=== PATIENT | male | born 1945 | race Caucasian/White ===

== ENCOUNTER 2017-08-25 13:17 | Emergency (ER) | payer MEDICARE, BC ==
--- NOTE | 2017-08-25 14:19 | CT ---
CT HEAD NONCONTRAST: INDICATIONS: Post traumatic injury. Pain. FINDINGS: There is no evidence of intracranial hemorrhage, mass effect, or midline shift. Minimal chronic micr ovascular ischemic disease is present. The ventricular system is normal in size. Scattered paranasa l sinus mucosal thickening is present with complete opacification of the imaged right maxillary sinus . There is dehiscence of medial wall, right orbit, chronic appearing, with adjacent opacification of the ethmoid air cells. IMPRESSION: No acute intracranial hemorrhage or mass effect. POS: [facility]
--- NOTE | 2017-08-25 14:39 | RAD ---
FOUR VIEWS RIGHT KNEE: Indication: Pain. FINDINGS: There is degenerative change with osteophytosis, and chondrocalcinosis. Mild joint capsular distentio n is present. There are enthesophytes of the patella. Multiple metallic clips are present. IMPRESSION: 1. Evidence of CPPD deposition disease. 2. No acute fracture. 3. Mild joint capsular distention. Correlate clinically. POS: [facility]
--- NOTE | 2017-08-25 14:50 | CT ---
FACIAL BONE CT: Clinical history: Fall with injury, pain. FINDINGS: Chronic appearing dehiscense involves medial wall right orbit. No retrobulbar hematoma or mass effect . There is near complete opacification of right maxillary sinus with intrinsic high density that may relate to sinusitis. Associated periosteal thickening indicates chronic sinusitis. Small fluid level at the posterior left maxillary sinus is present. There is leftward nasal septal deviation with assoc iated nasal septal spur. Each zygomatic arch is intact. Temporomandibular joints maintain appropriate alignment. IMPRESSION: 1. No acute facial fracture identified. 2. Additional details as described above. POS: [facility]
== END 2017-08-25 14:40 | disposition home or self-care (01) ==
LOC: SCSER 13:17
DX: S09.90XA Unspecified injury of head, initial encounter (principal); S80.01XA Contusion of right knee, initial encounter; S05.11XA Contusion of eyeball and orbital tissues, right eye, initial encounter; I10 Essential (primary) hypertension; M06.9 Rheumatoid arthritis, unspecified; W19.XXXA Unspecified fall, initial encounter
CPT/HCPCS: 70450; 70486

== ENCOUNTER 2018-02-13 09:33 | Outpatient (CLI) | payer MEDICARE, BC ==
--- NOTE | 2018-02-13 10:57 | RAD ---
TWO VIEWS OF THE CHEST: COMPARISON: 05/18/16. HISTORY: Dyspnea. FINDINGS: Two views of the chest show a normal-size cardiomediastinal silhouette. The patient is status post C ABG. There is no evidence of consolidation, mass, or pleural effusion. Degenerative changes are see n in the spine. IMPRESSION: No evidence of acute cardiopulmonary disease. POS: [facility]
== END 2018-02-13 09:34 | disposition home or self-care (01) ==
LOC: RAD 09:33
PROVIDERS: ATTEND Internal Medicine Critical Care Medicine
DX: R06.00 Dyspnea, unspecified (principal)
CPT/HCPCS: 71046

== ENCOUNTER 2018-10-28 12:37 | Outpatient (CLI) | payer MEDICARE, BC ==
--- NOTE | 2018-10-28 14:37 | RAD ---
CHEST TWO VIEWS: HISTORY: Dyspnea. COMPARISON: 02/13/2018 FINDINGS: The lungs are hyperinflated. Multiple calcified granulomas of the hilum. No focal air space consolidation, pneumothorax, or effusion. No acute osseous abnormality. IMPRESSION: Chronic findings. No acute intrathoracic abnormality. POS: [facility]
== END 2018-10-28 12:38 | disposition home or self-care (01) ==
LOC: RAD 12:37
PROVIDERS: ATTEND Internal Medicine Critical Care Medicine
DX: R06.00 Dyspnea, unspecified (principal); J84.10 Pulmonary fibrosis, unspecified; R91.8 Other nonspecific abnormal finding of lung field
CPT/HCPCS: 71046

== ENCOUNTER 2019-03-03 11:18 | Outpatient (CLI) | payer MEDICARE, BC ==
--- NOTE | 2019-03-03 11:34 | RAD ---
XR Chest Pa Lat @ [facility] HISTORY: Dyspnea COMPARISON: 10/28/2018 study FINDINGS: Heart size within normal limits with postop sternotomy changes. The lungs are clear of any infiltrative process some linear scarring is seen in the lung bases. IMPRESSION: No active intrathoracic disease. Stable chest.
== END 2019-03-03 11:19 | disposition home or self-care (01) ==
LOC: RAD 11:18
PROVIDERS: ATTEND Internal Medicine Critical Care Medicine
DX: R06.00 Dyspnea, unspecified (principal)
CPT/HCPCS: 71046

== ENCOUNTER 2019-03-11 10:28 | Emergency (ER) | payer MEDICARE, BC | END 2019-03-11 12:15 | disposition home or self-care (01) | LOC: ERS 10:28 | DX: L97.529 Non-pressure chronic ulcer of other part of left foot with unspecified severity (principal); I10 Essential (primary) hypertension; M06.9 Rheumatoid arthritis, unspecified; Z79.82 Long term (current) use of aspirin; Z79.01 Long term (current) use of anticoagulants; Z79.899 Other long term (current) drug therapy | CPT/HCPCS: 87070; 87205; 99283 ==

== ENCOUNTER 2019-03-12 07:51 | Outpatient (CLI) | payer MEDICARE, BC ==
[2019-03-12] MEDS ORDERED: Lidocaine 2% 11 ML SYR ONE (09:00)
[2019-03-12] MEDS ORDERED: Sodium Chloride 0.9% 15 ML NEB ONE (09:00)
--- NOTE | 2019-03-12 11:47 | HP ---
HISTORY OF PRESENT ILLNESS: Mr. Tyler Blake is a very pleasant 74-year-old gentleman, accompanied by his brother who presents to the [facility] for evaluation of an ulceration of the left heel. The patient states that the ulceration has been present for 11 years. He states that he received treatment for the ulceration at the [facility] for 4 to 5 years. He states that he was last seen in the [facility] several years ago. The patient states that he has been soaking his ulceration in hydrogen peroxide and dressing the ulceration with gauze followed by a Band-Aid. Because of pain associated with the ulceration over the heel in addition to fever, the patient was seen in the emergency department, where he was prescribed Keflex and Bactrim and referred to the Wound Center for further evaluation and treatment. The patient states that in the past he has experienced significant drainage associated with his wound. He states that his ulceration has never been treated with a skin substitute. PAST MEDICAL HISTORY: 1. Polio. 2. Osteoarthritis. 3. Hypertension. 4. Coronary artery disease. PAST SURGICAL HISTORY: 1. Coronary artery bypass grafting x4. 2. Right ankle surgery. 3. Empyema drainage. 4. Left total knee arthroplasty. 5. Bilateral hand surgery for trigger finger. 6. Bilateral foot surgery for polio. 7. Bilateral eye surgery for cataracts and lens placement. MEDICATIONS: 1. Keflex. 2. Atorvastatin. 3. Amlodipine. 4. Metoprolol. 5. Triamterene/HCTZ. ALLERGIES: NO KNOWN DIAGNOSED ALLERGIES. SOCIAL HISTORY: Social history is significant for tobacco use of 1 pack of cigarettes per day from 1967 to 1992. The patient states that he stopped smoking completely in 1992. The patient denies any history of EtOH use. FAMILY HISTORY: Family history is significant for diabetes mellitus. The patient states that he has two sisters who were diagnosed with diabetes mellitus. Family history is also significant for coronary artery disease. The patient states that he has two brothers and two sisters who were diagnosed with coronary artery disease. PHYSICAL EXAMINATION: VITAL SIGNS: Temperature 98.1, pulse 87, respirations 21, and blood pressure 171/76. GENERAL: A 74-year-old gentleman, sitting on table in examination room, in no acute distress. HEENT: Normocephalic and atraumatic. NECK: No nuchal rigidity. CHEST: Clear to auscultation. CV: Regular rate and rhythm. ABDOMEN: Soft. EXTREMITIES: An ulceration over the plantar surface of the left heel is present, which measures approximately 1.1 x 0.4 cm. The depth of the wound is approximately 2.7 cm. Grossly purulent drainage is associated with the wound. A sample of this drainage was sent for aerobic and anaerobic cultures with a culturette. Erythema of the heel is present. Maceration of the skin of the periwound is also noted on today's exam. A posterior tibial pulse is easily palpable on the left. Edema of the left heel is also present on today's exam. ASSESSMENT AND PLAN: 1. Left heel ulceration as described above over the plantar surface of the heel. Grossly purulent drainage is associated with the wound. The patient was referred to the emergency department for admission to include imaging and possible exploration. The patient and his brother understand and are in agreement with the preceding treatment plan. 2. Polio. 3. Osteoarthritis. 4. Hypertension. 5. Coronary artery disease. Job ID: [id number]
== END 2019-03-12 07:52 | disposition home or self-care (01) ==
LOC: WCC 07:51
PROVIDERS: ATTEND Family Medicine
DX: L97.429 Non-pressure chronic ulcer of left heel and midfoot with unspecified severity (principal); A80.9 Acute poliomyelitis, unspecified; M19.90 Unspecified osteoarthritis, unspecified site; I10 Essential (primary) hypertension; I25.10 Atherosclerotic heart disease of native coronary artery without angina pectoris
CPT/HCPCS: 87070; 87205

== ENCOUNTER 2019-03-12 09:25 | Inpatient (IN) | payer MEDICARE, BC ==
--- NOTE | 2019-03-12 10:20 | RAD ---
EXAM: 3 views of the left foot HISTORY: Wound in the left foot with swelling and pain COMPARISON: None FINDINGS: 3 views of the left foot shows the patient to be status post plate fixation of the first me tatarsal. There is questionable erosion of the proximal phalanx of the great toe, but this is only seen on one view and could be artifactual. Mild degenerative changes are seen in the great toe metata rsophalangeal joint. IMPRESSION: Possible erosions involving the proximal phalanx of the great toe. Correlate with locatio n of the patient's wound.
[2019-03-12 10:29] LABS: #Eosinphils 0.2 thou/uL (0.0-0.7); #Lymphocytes 1.3 thou/uL (1.20-3.40); #Monocytes 0.9 thou/uL (0.11-0.59); #Neutrophils 8.3 thou/uL (1.40-6.50); %Basophils 0.1 % (0.0-1.0); %Lymphocytes 11.9 % (21.0-51.0); %Monocytes 8.3 % (0.0-10.0); %Neutrophils 77.7 % (42.0-75.0); Hemoglobin 11.8 g/dL (14.0-18.0); Mean Corpuscular HGB CONC 31.2 g/dL (32.0-36.0); Mean Corpuscular Hemoglobin 27.9 pg (27.0-31.0); Mean Corpuscular Volume 89.3 fL (78.0-98.0); Mean Platelet Volume 7.6 fL (7.4-10.4); Platelet Count 237 thou/uL (130-400); Red Blood Cell (RBC) Count 4.22 mill/uL (4.70-6.10); White Blood Cell (WBC) Count 10.7 thou/uL (4.8-10.8)
[2019-03-12] MEDS ORDERED: Morphine 4 MG/ML VIAL ONE (10:39)
[2019-03-12] MEDS ORDERED: Ketorolac Tromethamine 30 MG/ML VIAL ONE (10:39)
[2019-03-12 10:55] LABS: ALT (SGPT) 38 U/L (8-55); AST (SGOT) 31 U/L (5-34); Albumin 3.3 g/dL (3.4-4.8); Alkaline Phosphatase 89 U/L (40-150); Anion Gap 10 mmol/L (10-20); BUN (Urea Nitrogen) 14 mg/dL (8.4-25.7); Bilirubin, Total 0.6 mg/dL (0.2-1.2); Calc. Creatinine Clearance 0 mL/min (70-130); Calcium 9.5 mg/dL (7.8-10.44); Carbon Dioxide 27 mmol/L (23-31); Chloride 108 mmol/L (98-107); Estimated GFR-MDRD Greater than 90; Globulin 3.4 g/dL (2.4-3.5); Glucose 103 mg/dL (83-110); Potassium 3.5 mmol/L (3.5-5.1); Protein, Total 6.7 g/dL (5.8-8.1); Sodium 141 mmol/L (136-145)
[2019-03-12] MEDS ORDERED: Gadobenate Dimeglumine 529 MG/1 ML (20ML VIAL) ONE (11:23)
[2019-03-12 12:49] VITALS: BMI 26.8
[2019-03-12] MEDS ORDERED: Vancomycin HCl 1 GM in Premix Bag 1 BAG IVPB SCH ×2 (13:00→18:00)
[2019-03-12] MEDS ORDERED: Piperacillin/Tazobactam 3.375 GM in Sodium Chloride 0.9% 100 ML IVPB SCH (14:00)
[2019-03-12] MEDS ORDERED: Heparin 1,000 UNITS/ML VIAL ONE (15:00)
[2019-03-12] MEDS ORDERED: Bisacodyl 10 MG SUPP PR PRN (15:24)
[2019-03-12] MEDS ORDERED: Guaifenesin DM 100-10/5 ML UDCUP PO PRN (15:24)
[2019-03-12] MEDS ORDERED: Senokot S 8.6-50 MG TAB PO PRN (15:24)
[2019-03-12] MEDS ORDERED: Ondansetron PF 4 MG/2 ML Vial IVP PRN (15:24)
--- NOTE | 2019-03-12 15:35 | MRI ---
LEFT LOWER EXTREMITY MRI WITH AND WITHOUT IV CONTRAST: HISTORY: Ulcer underneath calcaneus, pain for many years. FINDINGS: There is a large open wound in a plantar surface overlying the calcaneus with a tract extending up to the tip of the calcaneus with some associated fluid, possibly small abscess or extension of the open wound. There is extensive abnormal signal associated with the posterior calcaneus, evidence for ext ensive osteomyelitis. There is a suggestion of some tiny punctate foci of gas within the wound and w ithin the calcaneus. There appears to be complete disruption of the plantar fascia at the insertion region. Metal susceptibility artifact from metal plate and screws at the base of the 1st metatarsal. In addition, there is very abnormal thickened appearance of the Achilles tendon which appears to be almost a bifid-type tendon probably related to prior surgery given small metallic susceptibility art ifact changes in this region. IMPRESSION: Extensive open wound with surrounding cellulitis and/or phlegmon. The open wound extends up to the b ase of the calcaneus at the expected location of the plantar fascia insertion. There is a very small fluid collection adjacent to the bone at this location which measures 0.4 x 1.2 cm. Extensive osteo myelitis involving the calcaneus. Abnormal-appearing thickened almost split-type appearance of the A chilles tendon, evidence for prior surgery in this region. Small metal plate and screws stabilize th e base of the 1st metatarsal. Generalized arthrosis and degenerative changes. POS: [facility]
--- NOTE | 2019-03-12 15:52 | CON ---
DATE OF CONSULTATION: HISTORY OF PRESENT ILLNESS: A 74-year-old male patient, who lives alone. His brother, who he lived with recently . The patient is accompanied by his other brother. The patient has a history of polio and multiple foot and ankle surgeries, left and right. He wear a brace to support his left ankle as he has limited mobility. For the past 11 years, he has had an open wound on the plantar aspect of the left foot beneath his calcaneus. He states they have been doing wound care, but it would not heal. He does have palpable posterior tibial pulse that are on his feet indicative of excellent blood supply. He does have full ORIF hardware in his great metatarsal. Plain x-rays of his foot are nondiagnostic. He has had cultures obtained from the left foot. X-rays do not reveal any degenerative changes. The patient had a sinus tract, that has been treated, but it was probed and apparently purulent material drained and this sent for culture. He was admitted as he had a fever. In the emergency room, his white count was 10 and hemoglobin 11.8, and basic metabolic profile is normal. C-reactive protein was elevated to 17. Cultures 03/11/2019, from the left foot, gram-positive coccus, gram-negative rods. On evaluation of the foot, there is a sinus tract and it tracks towards the calcaneus posteriorly about 5 cm. There is minimal redness and minimal swelling. There are multiple scars of the ankle. ALLERGIES: NONE. SOCIAL HISTORY: Tobacco, none. Alcohol, none. Although, he has tobacco one pack a day from 1967 to 1992, cessation after that. MEDICATIONS: 1. Atorvastatin. 2. Amlodipine. 3. Metoprolol. FAMILY HISTORY: Diabetes and coronary artery disease. PAST SURGICAL HISTORY: Right lung decortication, coronary artery bypass grafting in late , right and left ankle surgery, bilateral hand surgery, and eye surgery. PAST MEDICAL HISTORY: Polio, arthritis, hypertension, and coronary artery disease. He is ambulatory with a brace. REVIEW OF SYSTEMS: Ten-point noncontributory otherwise. PHYSICAL EXAMINATION: VITAL SIGNS: Weight 176 pounds, 5 feet 8 inches, and 26 BMI. 98.1, 83, 18, and 161/74. HEAD, EARS, EYES, NOSE, AND THROAT: Unremarkable. Sclerae nonicteric. SKIN: Nonjaundiced. NECK: Axilla or groins without lymphadenopathy. NEUROLOGIC: Intact without focal deficits. LUNGS: Clear to auscultation. CARDIAC: Regular rate and rhythm without murmur or gallop. Well-healed sternotomy scar. ABDOMEN: Soft and nontender. No masses. EXTREMITIES: Palpable femoral, popliteal, or posterior tibial pulses bilaterally. Scars multiple on his left and right ankle and left foot, fewer on his toes and both feet. He has 0.5 cm sinus tract plantar foot just proximal to the arch that when probing with a Q-tip extends 4 cm toward the posterior calcaneus in the soft tissue. ASSESSMENT AND PLAN: Chronic open wound, left foot for more than 11 years. Ongoing wound care. There is no plain films evidence of osteomyelitis. The patient reports a fever, but none has been recorded in the hospital. We would recommend continued wound care with deeper packing. We will obtain MRI scan of the foot to assure there is no osteomyelitis. We will consult Dr. Mckeon. Currently, I do not think a surgical intervention is necessary and we will resume his diet. Consideration of consultation with Dr. Stallings, foot and ankle surgeon for this chronic problem may be a benefit. He does have open reduction and internal fixation hardware in left first metatarsal, but there is no indication at this process involves that and I do not think he has any concern. Job ID: [id number]
[2019-03-12] MEDS: Acetaminophen 325 MG TAB PO PRN (18:14)
[2019-03-12] MEDS ORDERED: traMADol HCl 50 MG TAB PO PRN (18:24)
[2019-03-12] MEDS ORDERED: Ibuprofen 200 MG TAB PO PRN (18:24)
--- NOTE | 2019-03-12 19:04 | HP ---
REASON FOR ADMISSION: Left heel osteomyelitis with ulcer. HISTORY OF PRESENTING ILLNESS: The patient had gone to see Dr. Hernandez [facility]. The probe that was placed in the wound reached the bone and had serous discharge. He was referred to ER for hospitalization. The patient states he has had ulcer in the left heel area from 15 years of age. He has had ongoing wound care for the area. He also has poliomyelitis which has affected all four extremities , more so in the lower extremities. He ambulates with an orthotic device fitted to shoes. No fever as such. PAST MEDICAL AND SURGICAL HISTORY: Hypertension, history of polio when he was 7 years old, left knee replacement, left foot surgery, right ankle fusion, bilateral hand surgeries, multiple foot surgeries due to polio. CABG x4 done by Dr. Leger here. Right thoracotomy for parapneumonic effusion, likely empyema. CURRENT MEDICATIONS: 1. Lopressor extended release 25 mg daily. 2. Lipitor 80 mg p.o. at bedtime. 3. Norvasc 2.5 mg p.o. daily. 4. Triamterene with hydrochlorothiazide 37.5/25 mg p.o. daily. ALLERGIES: NO KNOWN DRUG ALLERGIES. PERSONAL HISTORY: Does not abuse alcohol or drugs. No history of smoking. FAMILY HISTORY: The patient is not , has a brother who is not affected by polio. CODE STATUS: Full. Power of contracts attorney is his brother, Olayinka Blake. REVIEW OF SYSTEMS: CONSTITUTIONAL: Negative for weight loss or gain, ability to conduct usual activities. SKIN: Negative for rash, itching. EYES: Negative for double vision, pain. ENT/MOUTH: Negative for nose bleeding, neck stiffness, pain, tenderness. CARDIOVASCULAR: Negative for palpitations, dyspnea on exertion, orthopnea. RESPIRATORY: Negative for shortness of breath, wheezing, cough, hemoptysis, fever or night sweats. GASTROINTESTINAL: Negative for poor appetite, abdominal pain, heartburn, nausea , vomiting, constipation, or diarrhea. GENITOURINARY: Negative for urgency, frequency, dysuria, nocturia. MUSCULOSKELETAL: Negative for pain, swelling. NEUROLOGIC/PSYCHIATRIC: Negative for anxiety, depression. ALLERGY/IMMUNOLOGIC: Negative for skin rash, bleeding tendency. PHYSICAL EXAMINATION: GENERAL: The patient is a 74-year-old male who is currently not in any acute distress. VITAL SIGNS: Blood pressure 170/78, pulse 96 per minute, respiratory rate 18 per minute, temperature 97.9 degrees Fahrenheit, saturating 95% on room air. NECK: Supple. No elevated JVD. HEENT: Eyes; extraocular muscles intact. Pupils reacting to light. Oral cavity, mucous membranes are moist. No exudates or congestion. CARDIOVASCULAR: S1 and S2 heard. Regular rhythm. RESPIRATORY: Air entry 1+ bilateral. No rales or rhonchi. ABDOMEN: Soft. Bowel sounds heard. No tenderness, rigidity, or guarding. EXTREMITIES: Left heel, the patient has 0.5 x 0.5 cm ulcer which probes to the bone. Serous discharge seen. His left heel is also edematous and has erythema. The patient has severe osteoarthritis of both hands with radial deviation of his fingers. Peripheral pulses are 1+ bilateral. No ischemic ulcerations or gangrene. CENTRAL NERVOUS SYSTEM: No gross focal deficits noted. The patient has long-standing polio which has affected both lower extremities. PSYCHIATRIC: The patient's mood is euthymic. No hallucinations or delusions. LABORATORY DATA: White count of 10, H and H 11 and 37, platelet count 237, MCV is 89 with 77% neutrophils. Electrolytes stable. BUN 14, creatinine 0.6, serum glucose 103. Liver enzymes within normal limits. CRP 17.6, albumin 3.3. Preliminary Gram stain of left heel ulcer has shown gram-positive cocci in pairs. MRI of the left foot done shows extensive open wound with surrounding cellulitis and/or Phlegmon. Open wound extends to the base of the calcaneus at the expected location of the plantar fascia insertion. A small fluid collection adjacent to the bone at this location, which measures 0.4 x 1.2 cm. Extensive osteomyelitis involving calcaneus, abnormally thickened almost split type appearance of the Achilles tendon. Evidence for prior surgery in this region. Small metal plate and screws stabilize the base of the first metatarsal. Generalized arthrosis and degenerative changes are seen. CLINICAL IMPRESSION AND PLAN: The patient will be admitted to medical floor. He will be placed on vancomycin and Zosyn. Wound Care consultation will be requested. Surgical consultation with Dr. Lopez has been placed. We will continue his atorvastatin, Norvasc, Toprol-XL at home doses. He will be on morphine, Ultram , and Motrin p.r.n. for pain. We will continue to closely monitor him on medical floor. Job ID: [id number] MTDD
[2019-03-12] MEDS: Famotidine 20 MG TAB PO SCH (20:44)
[2019-03-12] MEDS: Atorvastatin Calcium 40 MG TAB PO SCH (20:44)
[2019-03-12] MEDS: Piperacillin/Tazobactam 3.375 GM in Sodium Chloride 0.9% 100 ML IVPB SCH (21:12)
[2019-03-12] MEDS: Melatonin 3 MG TAB PO PRN (22:53)
[2019-03-13] MEDS: Vancomycin HCl 1 GM in Premix Bag 1 BAG IVPB SCH ×2 (02:25→14:54)
[2019-03-13] MEDS: Piperacillin/Tazobactam 3.375 GM in Sodium Chloride 0.9% 100 ML IVPB SCH ×3 (05:34→21:11)
[2019-03-13 06:48] LABS: Anion Gap 12 mmol/L (10-20); BUN (Urea Nitrogen) 14 mg/dL (8.4-25.7); Calc. Creatinine Clearance 124 mL/min (70-130); Calcium 8.6 mg/dL (7.8-10.44); Carbon Dioxide 24 mmol/L (23-31); Chloride 108 mmol/L (98-107); Estimated GFR-MDRD Greater than 90; Glucose 94 mg/dL (83-110); Potassium 3.7 mmol/L (3.5-5.1); Sodium 140 mmol/L (136-145)
[2019-03-13] MEDS: Amlodipine 5 MG TAB PO SCH (07:51)
[2019-03-13] MEDS: Enoxaparin Sodium 40 MG/0.4 ML SYRINGE SC SCH (07:51)
[2019-03-13] MEDS: Famotidine 20 MG TAB PO SCH ×2 (07:52→20:31)
[2019-03-13] MEDS: Morphine 4 MG/ML VIAL SLOW IVP PRN (14:29)
--- NOTE | 2019-03-13 14:41 | PDOC.HOSPP ---
- Subjective Subjective: awake, sitting on bed no pain, feels better says he does not want amputation and prefers medical treatment with debridement if possible brother at bedside - Objective Vital Signs & Weight: Vital Signs (12 hours) Temp Pulse Resp BP BP Pulse Ox 03/13/19 08:00 95 03/13/19 07:51 68 03/13/19 07:21 97.6 F 68 20 113/67 95 03/13/19 05:13 98.1 F 66 20 110/68 98 Weight Admit Weight 176 lb 6.4 oz Weight 176 lb 6.4 oz I&O: 03/12/19 03/13/19 03/14/19 06:59 06:59 06:59 Intake Total 2370 480 Output Total 1375 Balance 995 480 Result Diagrams: 03/12/19 10:04 03/13/19 05:34 ROS - Review of Systems All systems: All other ROS were reviewed and found negative. - Medication Medications: Active Medications Generic Name Dose Route Start Last Admin Trade Name Freq PRN Reason Stop Dose Admin Acetaminophen 650 mg 03/12/19 15:24 03/12/19 18:14 Tylenol PO 650 mg Q4H PRN Administration Headache/Fever/Mild Pain (1-3) Amlodipine Besylate 5 mg 03/13/19 09:00 03/13/19 07:51 Norvasc PO 5 mg DAILY OSMANI Administration Atorvastatin Calcium 80 mg 03/12/19 21:00 03/12/19 20:44 Lipitor PO 80 mg HS OSMANI Administration Enoxaparin Sodium 40 mg 03/13/19 09:00 03/13/19 07:51 Lovenox SC 40 mg 0900 OSMANI Administration Famotidine 20 mg 03/12/19 21:00 03/13/19 07:52 Pepcid PO 20 mg BID OSMANI Administration Piperacillin Sod/Tazobactam 100 mls @ 200 mls/hr 03/12/19 22:00 03/13/19 13: 47 Sod 3.375 gm/ Sodium Chloride IVPB 100 mls Q8HR OSMANI Administration Vancomycin HCl 1 gm/ Device 200 mls @ 200 mls/hr 03/13/19 03:00 03/13/19 02: 25 IVPB 200 mls 0300,1500 OSMANI Administration Melatonin 3 mg 03/12/19 22:37 03/12/19 22:53 Melatonin PO 3 mg HS PRN Administration Insomnia Metoprolol Succinate 25 mg 03/13/19 09:00 03/13/19 07:51 Toprol Xl PO 25 mg DAILY OSMANI Administration - Exam NAD, awake alert Eye: PERRL, anicteric sclera ENT: normocephalic atraumatic, moist mucosa Neck: supple, no JVD Heart: RRR, no murmur Respiratory: no wheezes, no rales Gastrointestinal: soft, non-tender, normal bowel sounds Extremities: 1+ LE edema (left foot plantar ulcer) Neurological: CN's grossly intact, no focal deficits (chronic polio affecting LE b/l) Psychiatric: normal affect, A&O x 3 Hosp A/P (1) left heel osteomyelitis Status: Acute (2) HTN (hypertension) Code(s): I10 - ESSENTIAL (PRIMARY) HYPERTENSION Status: Chronic Qualifiers: Hypertension type: essential hypertension Qualified Code(s): I10 - Essential (primary) hypertension (3) Dyslipidemia Code(s): E78.5 - HYPERLIPIDEMIA, UNSPECIFIED Status: Chronic (4) CAD (coronary artery disease) Code(s): I25.10 - ATHSCL HEART DISEASE OF [place] CORONARY ARTERY W/O ANG PCTRS Status: Chronic Qualifiers: Coronary Disease-Associated Artery/Lesion type: bypass graft [place] vs. transplanted heart: tribe heart Associated angina: without angina Qualified Code(s): I25.810 - Atherosclerosis of coronary artery bypass graft(s) without angina pectoris (5) H/O poliomyelitis Code(s): Z86.12 - PERSONAL HISTORY OF POLIOMYELITIS Status: Chronic - Plan is on vanc and zosyn, morphine, ultram prn continue toprol xl, norvasc and lipitor await opinion, pt and son wants to weigh in as well. hemostable
[2019-03-13] MEDS: Atorvastatin Calcium 40 MG TAB PO SCH (20:31)
[2019-03-13] MEDS: Acetaminophen 325 MG TAB PO PRN (20:31)
--- NOTE | 2019-03-13 20:31 | PRG ---
DATE OF SERVICE: 03/13/2019 Mr. Blake is doing well today. He has had MRI demonstrating osteomyelitis of his calcaneus. Currently, I do not have any surgical intervention recommended. I would recommend wound care with wound VAC application and intravenous antibiotics. I would recommend consultation with Dr. Mckeon. The patient is at risk for limb loss. From a surgical standpoint, I have nothing to offer at this time. Consideration to referral to Dr. Stallings for his opinion at a later day could be given. He will need prolonged intravenous antibiotics and wound care with wound VAC application and white foam packing of the tract. The tract is narrow. At this point, I would continue wound care and I will see him as needed. Please call if needed. Job ID: [id number]
[2019-03-13] MEDS: Melatonin 3 MG TAB PO PRN (21:12)
--- NOTE | 2019-03-13 21:44 | CON ---
DATE OF CONSULTATION: 03/13/2019 REASON FOR CONSULTATION: This is a consult note regarding left heel osteomyelitis. HISTORY OF PRESENT ILLNESS: Mr. lBake is a 74-year-old gentleman with history of hypertension and poliomyelitis with bilateral lower extremity weakness and previous surgical interventions of both ankles. He also has coronary artery disease with bypass graft surgery and a previous history of empyema. The patient has had a chronic wound in the posterior aspect of the left heel area which dates back to when he was 15 years of age. Reportedly, had some surgical interventions in the past and has developed this chronic process and has dealt with it by Wound Care and it has sort of waxed and waned intermittently and now the inflammatory process has exacerbated and is admitted because of that. He denies any headaches, visual symptoms, sore throat, odynophagia, dysphagia. No cough, sputum production, or chest pain. No dyspnea. No back pain. No abdominal pain or diarrhea. No genitourinary symptoms. The right lower extremity is not giving him any pain right now. 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 ALLERGIES: NONE. SOCIAL HISTORY: I believe he lives in [place] by himself. Does not drink. Does not smoke. FAMILY HISTORY: He has a brother, no other family history of significance. CURRENT MEDICATIONS: Include; 1. Tylenol. 2. Norvasc. 3. Lipitor. 4. Dulcolax. 5. Lovenox. 6. Pepcid. 7. Motrin. 8. Melatonin. 9. Toprol. 10. Zofran. 11. Zosyn. 12. Vancomycin. PHYSICAL EXAMINATION: VITAL SIGNS: T-max 98.8. Other vital signs are normal. SKIN: We have this round-shaped area of ulceration at the posterior aspect of the left heel with surrounding erythema involving the entire heel area. The ulcer measures about 1 cm and no other skin lesions noted. Peripheral IV access. No Gould catheter. No lymphadenopathy. HEENT: Ocular movements conjugate. Sclerae white. Pupils are equal. Oral cavity with quite a few missing teeth. No oral lesions. NECK: Supple. No jugular vein distention. No carotid bruits. LUNGS: Clear to auscultation and percussion. HEART: S1, S2. Regular rate without murmurs. ABDOMEN: Soft, not distended or tender. No ascites. No bladder distention. No genital abnormalities. EXTREMITIES: Pulses are 1+ in popliteals and 1+ in dorsalis pedis. 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 NEUROLOGIC: His cognitive function appears to be intact. His speech is little bit dysarthric, kind of mumbles the words, but his recall is normal. LABORATORY DATA: WBC count 10.7, hemoglobin 11.8, MCV 89, platelets 237 with 77 % neutrophils. Sodium 141, creatinine 0.6. Liver profile normal. CRP 17.6. Imaging study shows extensive cellulitis with open wound to left heel area with extensive osteomyelitis, very small fluid collection. ASSESSMENT: 1. 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 2. Cellulitis. DISCUSSION: The patient has chronic osteomyelitis with intermittent exacerbations. This must be a low-grade pathogen with a smoldering infection over the past many decades. Otherwise, one would have expected a higher degree of bone destruction in the plain films. The absence of such would indicate something like a coagulase-negative Staph or corynebacterium or propionibacterium or similar low-grade pathogen. In terms of management, I think that the options here are limited. Evidently, amputation will be curative, but the patient is not interested in that. Debridement would be problematic because of healing issues. May be attempted though after proper vascular study. He may have some element of peripheral vascular disease. I probably would recommend IV, followed by long-term suppressive antimicrobial therapy for this chronic osteomyelitis with sinus tract. He maybe able to achieve reasonable results with chronic suppression rather than more aggressive procedure. Job ID: [id number] [facility]
[2019-03-14 02:19] LABS: Vancomycin, Trough 13.3 ug/mL
[2019-03-14] MEDS: Vancomycin HCl 1 GM in Premix Bag 1 BAG IVPB SCH ×2 (03:24→15:30)
[2019-03-14] MEDS: Piperacillin/Tazobactam 3.375 GM in Sodium Chloride 0.9% 100 ML IVPB SCH ×2 (05:27→13:55)
[2019-03-14] MEDS: Enoxaparin Sodium 40 MG/0.4 ML SYRINGE SC SCH (07:47)
[2019-03-14] MEDS: Famotidine 20 MG TAB PO SCH ×2 (07:48→19:54)
[2019-03-14] MEDS: Amlodipine 5 MG TAB PO SCH (07:48)
[2019-03-14] MEDS: Morphine 4 MG/ML VIAL SLOW IVP PRN ×2 (11:18→18:50)
--- NOTE | 2019-03-14 13:22 | PDOC.HOSPP ---
- Subjective Subjective: is sitting on bed had dressing done just now, a bit painfull no sob, brother at bedside - Objective Vital Signs & Weight: Vital Signs (12 hours) Temp Pulse Resp BP BP Pulse Ox 03/14/19 08:01 98.0 F 65 18 120/62 98 03/14/19 08:00 98 03/14/19 07:48 76 03/14/19 04:54 98.4 F 76 20 108/57 L 96 Weight Admit Weight 176 lb 6.4 oz Weight 176 lb 6.4 oz I&O: 03/13/19 03/14/19 03/15/19 06:59 06:59 06:59 Intake Total 2370 1880 240 Output Total 1375 775 Balance 995 1105 240 Result Diagrams: 03/12/19 10:04 03/13/19 05:34 ROS - Review of Systems All systems: All other ROS were reviewed and found negative. - Medication Medications: Active Medications Generic Name Dose Route Start Last Admin Trade Name Freq PRN Reason Stop Dose Admin Acetaminophen 650 mg 03/12/19 15:24 03/13/19 20:31 Tylenol PO 650 mg Q4H PRN Administration Headache/Fever/Mild Pain (1-3) Amlodipine Besylate 5 mg 03/13/19 09:00 03/14/19 07:48 Norvasc PO 5 mg DAILY OSMANI Administration Atorvastatin Calcium 80 mg 03/12/19 21:00 03/13/19 20:31 Lipitor PO 80 mg HS OSMANI Administration Enoxaparin Sodium 40 mg 03/13/19 09:00 03/14/19 07:47 Lovenox SC 40 mg 0900 OSMANI Administration Famotidine 20 mg 03/12/19 21:00 03/14/19 07:48 Pepcid PO 20 mg BID OSMANI Administration Piperacillin Sod/Tazobactam 100 mls @ 200 mls/hr 03/12/19 22:00 03/14/19 05: 27 Sod 3.375 gm/ Sodium Chloride IVPB 100 mls Q8HR OSMANI Administration Vancomycin HCl 1 gm/ Device 200 mls @ 200 mls/hr 03/13/19 03:00 03/14/19 03: 24 IVPB 200 mls 0300,1500 OSMANI Administration Melatonin 3 mg 03/12/19 22:37 03/13/19 21:12 Melatonin PO 3 mg HS PRN Administration Insomnia Metoprolol Succinate 25 mg 03/13/19 09:00 03/14/19 07:48 Toprol Xl PO 25 mg DAILY OSMANI Administration Morphine Sulfate 2 mg 03/12/19 18:24 03/14/19 11:18 Morphine SLOW IVP 2 mg Q4H PRN Administration .Chest Pain/BP Elevations - Exam NAD (left heel in dressing, edema is receding), awake alert Eye: PERRL, anicteric sclera ENT: normocephalic atraumatic, moist mucosa Neck: supple, no JVD Heart: RRR, no murmur Respiratory: no wheezes, no rales Gastrointestinal: soft, non-tender, normal bowel sounds Extremities: no cyanosis Neurological: CN's grossly intact, no focal deficits (chronic polio changes in both LE) Psychiatric: normal affect, A&O x 3 Hosp A/P (1) left heel osteomyelitis Status: Acute (2) HTN (hypertension) Code(s): I10 - ESSENTIAL (PRIMARY) HYPERTENSION Status: Chronic Qualifiers: Hypertension type: essential hypertension Qualified Code(s): I10 - Essential (primary) hypertension (3) Dyslipidemia Code(s): E78.5 - HYPERLIPIDEMIA, UNSPECIFIED Status: Chronic (4) CAD (coronary artery disease) Code(s): I25.10 - ATHSCL HEART DISEASE OF [place] CORONARY ARTERY W/O ANG PCTRS Status: Chronic Qualifiers: Coronary Disease-Associated Artery/Lesion type: bypass graft [place] vs. transplanted heart: [place] heart Associated angina: without angina Qualified Code(s): I25.810 - Atherosclerosis of coronary artery bypass graft(s) without angina pectoris (5) H/O poliomyelitis Code(s): Z86.12 - PERSONAL HISTORY OF POLIOMYELITIS Status: Chronic - Plan is on vanc and zosyn await full wound cultures, initial results show strep agalactiae continue norvasc, toprol xl, lipitor, morphine and ultram prn wound care will f/u
[2019-03-14] MEDS: cefTRIAXone\\ROCEPHIN 2 GM in Sodium Chloride 0.9% 100 ML IVPB SCH (16:40)
[2019-03-14] MEDS: Atorvastatin Calcium 40 MG TAB PO SCH (19:54)
[2019-03-14] MEDS: Melatonin 3 MG TAB PO PRN (21:16)
[2019-03-15] MEDS: Amlodipine 5 MG TAB PO SCH (07:34)
[2019-03-15] MEDS: Famotidine 20 MG TAB PO SCH ×2 (07:35→20:28)
[2019-03-15] MEDS: Enoxaparin Sodium 40 MG/0.4 ML SYRINGE SC SCH (07:35)
[2019-03-15] MEDS: Morphine 4 MG/ML VIAL SLOW IVP PRN ×2 (10:22→18:18)
--- NOTE | 2019-03-15 14:28 | PDOC.HOSPP ---
- Subjective Subjective: no abd pain or sob is ambulating, leg pain is better - Objective Vital Signs & Weight: Vital Signs (12 hours) Temp Pulse Resp BP Pulse Ox 03/15/19 08:00 97.9 F 66 18 129/67 97 03/15/19 07:34 65 03/15/19 04:00 97.8 F 65 16 117/64 96 Weight Admit Weight 176 lb 6.4 oz Weight 176 lb 6.4 oz I&O: 03/14/19 03/15/19 03/16/19 06:59 06:59 06:59 Intake Total 1880 1440 720 Output Total 775 970 Balance 1105 470 720 Result Diagrams: 03/12/19 10:04 03/13/19 05:34 ROS - Review of Systems All systems: All other ROS were reviewed and found negative. - Medication Medications: Active Medications Generic Name Dose Route Start Last Admin Trade Name Freq PRN Reason Stop Dose Admin Acetaminophen 650 mg 03/12/19 15:24 03/13/19 20:31 Tylenol PO 650 mg Q4H PRN Administration Headache/Fever/Mild Pain (1-3) Amlodipine Besylate 5 mg 03/13/19 09:00 03/15/19 07:34 Norvasc PO 5 mg DAILY OSMANI Administration Atorvastatin Calcium 80 mg 03/12/19 21:00 03/14/19 19:54 Lipitor PO 80 mg HS OSMANI Administration Enoxaparin Sodium 40 mg 03/13/19 09:00 03/15/19 07:35 Lovenox SC 40 mg 0900 OSMANI Administration Famotidine 20 mg 03/12/19 21:00 03/15/19 07:35 Pepcid PO 20 mg BID OSMANI Administration Ceftriaxone Sodium 2 gm/ 100 mls @ 200 mls/hr 03/14/19 16:00 03/14/19 16:40 Sodium Chloride IVPB 100 mls Q24HR OSMANI Administration Melatonin 3 mg 03/12/19 22:37 03/14/19 21:16 Melatonin PO 3 mg HS PRN Administration Insomnia Metoprolol Succinate 25 mg 03/13/19 09:00 03/15/19 07:34 Toprol Xl PO 25 mg DAILY OSMANI Administration Morphine Sulfate 2 mg 03/12/19 18:24 03/15/19 10:22 Morphine SLOW IVP 2 mg Q4H PRN Administration .Chest Pain/BP Elevations Tramadol HCl 50 mg 03/12/19 18:24 03/14/19 13:59 Ultram PO 50 mg Q6H PRN Administration Pain 4-6 - Exam NAD (left heel area edema and mid foot edema is receding), awake alert Eye: PERRL, anicteric sclera ENT: normocephalic atraumatic, moist mucosa Neck: supple, no JVD Heart: RRR, no murmur Respiratory: CTAB, no ronchi Gastrointestinal: soft, non-tender, normal bowel sounds Extremities: no edema Neurological: CN's grossly intact, no focal deficits Musculoskeletal: normal tone, normal strength Hosp A/P (1) left heel osteomyelitis Status: Acute (2) HTN (hypertension) Code(s): I10 - ESSENTIAL (PRIMARY) HYPERTENSION Status: Chronic Qualifiers: Hypertension type: essential hypertension Qualified Code(s): I10 - Essential (primary) hypertension (3) Dyslipidemia Code(s): E78.5 - HYPERLIPIDEMIA, UNSPECIFIED Status: Chronic (4) CAD (coronary artery disease) Code(s): I25.10 - ATHSCL HEART DISEASE OF [place] CORONARY ARTERY W/O ANG PCTRS Status: Chronic Qualifiers: Coronary Disease-Associated Artery/Lesion type: bypass graft [place] vs. transplanted heart: [place] heart Associated angina: without angina Qualified Code(s): I25.810 - Atherosclerosis of coronary artery bypass graft(s) without angina pectoris (5) H/O poliomyelitis Code(s): Z86.12 - PERSONAL HISTORY OF POLIOMYELITIS Status: Chronic - Plan hemostable on ceftriaxone, outpt antibiotic set up needs to be arranged till apr 28December dc when above is arranged pt to have outpt f/u with in 1 week. continue toprol xl, norvasc and lipitor
--- NOTE | 2019-03-15 15:04 | PRG ---
DATE OF SERVICE: 03/15/2019 SUBJECTIVE: Feeling better, less pain. No respiratory symptoms or abdominal pain. No diarrhea. OBJECTIVE: VITAL SIGNS: Normal. EXTREMITIES: Left foot heel area with less erythema, less tenderness. The wound is packed. LUNGS: Clear. HEART: S1 and S2. Regular rate. ABDOMEN: Soft, not distended or tender. LABORATORY DATA: White cell count has not been repeated since admission. Creatinine 0.61. Microbiology with group B Streptococcus from 3 samples and anaerobic organism from 2 samples. ASSESSMENT AND DISCUSSION: Post-polio syndrome, chronic osteomyelitis, left heel for many decades with group B Streptococcus and anaerobes. We will add a Flagyl orally. Continue Rocephin. At the completion of Rocephin, I will switch him to probably oral amoxicillin. Depending on the identification of the anaerobes, may have to add further coverage for long-term treatment. Job ID: [id number]
[2019-03-15] MEDS: cefTRIAXone\\ROCEPHIN 2 GM in Sodium Chloride 0.9% 100 ML IVPB SCH (15:13)
[2019-03-15] MEDS: metroNIDAZOLE 500 MG TAB PO SCH ×2 (15:13→20:27)
[2019-03-15] MEDS: Atorvastatin Calcium 40 MG TAB PO SCH (20:28)
[2019-03-15] MEDS: Melatonin 3 MG TAB PO PRN (22:16)
[2019-03-16] MEDS: metroNIDAZOLE 500 MG TAB PO SCH ×2 (08:34→15:35)
[2019-03-16] MEDS: Amlodipine 5 MG TAB PO SCH (08:34)
[2019-03-16] MEDS: Enoxaparin Sodium 40 MG/0.4 ML SYRINGE SC SCH (08:34)
[2019-03-16] MEDS: Famotidine 20 MG TAB PO SCH (08:34)
--- NOTE | 2019-03-16 11:25 | SPC ---
Sonographic guided left upper extremity PICC HISTORY: Osteomyelitis. FINDINGS: After explaining the procedure and answering all questions, the left upper extremity was pr epped and draped in usual sterile fashion. Sterile technique, buffered local anesthesia, sonographic guidance, and a 22-gauge needle were used to carefully access the left basilic vein. Bill dard technique was then used to place the tip of a 5 [place] single lumen PICC so that the tip lies at the level of the cavoatrial junction. Catheter was flushed and secured externally. Patient tolerat ed the procedure well and was returned in unchanged condition. Fluoroscopy time 0 seconds. IMPRESSION: Left upper extremity PICC is ready for use.
[2019-03-16] MEDS: Morphine 4 MG/ML VIAL SLOW IVP PRN (12:40)
[2019-03-16] MEDS: cefTRIAXone\\ROCEPHIN 2 GM in Sodium Chloride 0.9% 100 ML IVPB SCH (15:34)
[2019-03-16 16:30] VITALS: BP 136/87; TEMP 98.4
--- NOTE | 2019-03-17 13:50 | DIS ---
DATE OF ADMISSION: 03/12/2019 DATE OF DISCHARGE: 03/16/2019 DISCHARGE DISPOSITION: Home. PRIMARY DISCHARGE DIAGNOSIS: Left heel osteomyelitis. SECONDARY DISCHARGE DIAGNOSES: History of polio with multiple procedures on lower extremities, hypertension, dyslipidemia, coronary artery disease with prior CABG. PROCEDURES DONE DURING HOSPITALIZATION: Three-view left foot plain x-ray done shows possible erosions involving the proximal phalanx of the great toe. Had a PICC line placed on 03/16/2019. Lower extremity MRI of the left foot done showed extensive open wound with surrounding cellulitis and/or phlegmon. The open wound extends up to the base of the calcaneus. At the expected location of the plantar fascia insertion, there is a very small fluid collection adjacent to the bone at this location, which measures 0.4 x 1.2 cm. Extensive osteomyelitis involving the calcaneus. Abnormal appearing thickened almost split type appearance of the Achilles tendon. Evidence for prior surgery in this region. Wound cultures grew Strep agalactiae group B. blood cultures x2, no growth. H and H 11 and 37, platelet count 237. Sedimentation rate was 77, CRP 17.6, BUN 14, creatinine 0.6. DISCHARGE MEDICATIONS: 1. Ceftriaxone 2 g daily until 04/28. 2. Flagyl 500 mg p.o. 3 times daily for 10 days. 3. Ultram p.r.n. for pain. 4. Toprol-XL 25 mg daily. 5. Atorvastatin 80 mg p.o. at bedtime. 6. Norvasc 5 mg daily. INPATIENT CONSULT: 1. Dr. Mckeon for Infectious Disease. 2. Dr. Lopez for General Surgery. DISCHARGE PLAN: The patient to follow up with primary care physician in 1 week , Dr. Mckeon in 3 weeks. He also needs to see his primary surgeon, Dr. Stallings in a week. BRIEF COURSE DURING HOSPITALIZATION: The patient initially came to ER with complaints of left foot swelling and drainage. He had gone to see wound care physician, Dr. Hernandez and upon initial probing, the wound was reaching bone with serous discharge. He was referred for hospitalization. The patient had plain x-ray and MRI done, both confirmed osteomyelitis. He has had consultation with Dr. Lopez for General surgery and Dr. Mckeon for Infectious Disease. The patient has prior history of polio with multiple surgeries done in the foot. He wanted to save his foot with no amputation. He opted for medical therapy. In view of this, he will be on ceftriaxone based on cultures. He will also take Flagyl for a period of 10 days. The patient needs to see Dr. Mckeon in 3 weeks to see the progress of his osteomyelitis. He will need weekly CBC, CMP, CRP, and sedimentation rate that to be faxed to Dr. Mckeon' office. The patient has opted for home health infusion with traditions. Please note, I have seen and examined the patient on the day of discharge. Job ID: [id number] [facility]
== END 2019-03-16 16:21 | disposition home health service (06) | DRG 540 ==
LOC: ERS 09:25 → T4-B 10:58
PROVIDERS: ADMIT Internal Medicine; ATTEND Internal Medicine
PROC: 02HV33Z Insertion of Infusion Device into Superior Vena Cava, Percutaneous Approach (ICD-10-PCS; principal; 2019-03-16)
PROC: B548ZZA Ultrasonography of Superior Vena Cava, Guidance (ICD-10-PCS; 2019-03-16)
DX: M86.172 Other acute osteomyelitis, left ankle and foot (principal); L97.429 Non-pressure chronic ulcer of left heel and midfoot with unspecified severity; I10 Essential (primary) hypertension; M06.9 Rheumatoid arthritis, unspecified; E78.5 Hyperlipidemia, unspecified; I25.10 Atherosclerotic heart disease of native coronary artery without angina pectoris; Z87.891 Personal history of nicotine dependence; Z86.12 Personal history of poliomyelitis; Z79.899 Other long term (current) drug therapy; Z95.1 Presence of aortocoronary bypass graft; B95.4 Other streptococcus as the cause of diseases classified elsewhere
CPT/HCPCS: 36415; 36569; 80048; 80053; 80202; 85025; 85652; 86140; 87040; 87070; 87077; 87205; 96374; 96375; 97602; 99203; 99283; A4218; A9577; C1751; G0463; J0696; J1644; J1650; J1885; J2270; J2543; J3370; J3490

== ENCOUNTER 2019-05-28 13:01 | Outpatient (CLI) | payer MEDICARE, BC ==
--- NOTE | 2019-05-28 17:16 | PRG ---
DATE OF SERVICE: 05/28/2019 HISTORY: Mr. Tyler Blake is a very pleasant 74-year-old gentleman, who presents to the Wound Center for evaluation of an ulceration of the left heel. Since the patient's last visit to the Wound Center, Mr. Blake was admitted to [facility], where he was found to have osteomyelitis of the left heel. The patient received IV antibiotics as per Infectious Diseases. During the patient's hospital stay, Mr. Blake was also seen in consultation by Dr. Maxime Stallings. The patient states that he was seen by Dr. Stallings on one occasion after his discharge from [facility]. The patient is presently receiving dressing changes with the assistance of Home Health. The patient was referred to the Wound Center for evaluation for debridement of the plantar ulceration over the left heel. PHYSICAL EXAMINATION: VITAL SIGNS: Temperature 97.9, pulse 76, respirations 16, and blood pressure 142/67. SKIN: The ulceration over the plantar surface of the left heel measures approximately 1.6 x 1.0 cm. Granulation tissue is present within the wound margins. Necrotic and nonviable tissue present within the wound margins was debrided with an excisional full-thickness debridement with the use of scissors. Callus desiccated tissue and undermining at the periphery of the wound were also eliminated with the use of scissors. No purulent drainage is associated with the wound. No erythema of the skin surrounding the wound is present. No maceration of the skin of the periwound is noted. A posterior tibial pulse is palpable on the left. No significant edema of the left foot is present on exam today. ASSESSMENT AND PLAN: 1. Left heel ulceration as described above over the plantar surface of the heel. The present dressing changes at the current frequency by Home Health will be continued. I will see Mr. Blake again in four weeks. Consideration will be given to treatment of the ulceration with a skin substitute in conjunction with negative pressure therapy if the wound is still present at this time. The patient and his brother understand and are in agreement with the preceding treatment plan. 2. Polio. 3. Osteoarthritis. 4. Hypertension. 5. Coronary artery disease. Job ID: [id number]
[2019-05-28] MEDS ORDERED: Lidocaine 2% PF 100 mg/5 ml Syringe ONE (18:00)
[2019-05-28] MEDS ORDERED: Sodium Chloride 0.9% 15 ML NEB ONE (18:00)
== END 2019-05-28 13:02 | disposition home or self-care (01) ==
LOC: WCC 13:01
PROVIDERS: ATTEND Family Medicine
DX: L97.429 Non-pressure chronic ulcer of left heel and midfoot with unspecified severity (principal); M19.90 Unspecified osteoarthritis, unspecified site; I10 Essential (primary) hypertension; I25.10 Atherosclerotic heart disease of native coronary artery without angina pectoris
CPT/HCPCS: 11042; 99213; A4218; G0463; J2001

== ENCOUNTER 2019-06-25 13:34 | Outpatient (CLI) | payer MEDICARE, BC ==
[~2019-06-25 13:34] MED LIST: Lidocaine 2% PF 100 mg/5 ml Syringe ONE; Sodium Chloride 0.9% 15 ML NEB ONE
--- NOTE | 2019-06-25 14:10 | PRG ---
DATE OF SERVICE: 06/25/2019 HISTORY: Mr. Tyler Blake is a very pleasant 74-year-old gentleman, who presents to the Wound Center for evaluation of an ulceration of the left heel. Mr. Blake was recently admitted to [facility], where he was found to have osteomyelitis of the left heel. The patient received IV antibiotics as per Infectious Diseases. During the patient's hospital stay, Mr. Blake was also seen in consultation by Dr. Maxime Stallings. The patient is presently receiving negative pressure therapy for the ulceration of his left heel. PHYSICAL EXAMINATION: VITAL SIGNS: Temperature 97.6, pulse 72, respirations 19, and blood pressure 176/71. EXTREMITIES: The ulceration over the plantar surface of the left heel measures approximately 0.7 x 0.2 cm. The depth of the wound is approximately 0.6 cm. Granulation tissue is present within the wound margins. Necrotic and nonviable tissue present within the wound margins was debrided with an excisional full-thickness debridement with the use of a curette. Callus and undermining at the periphery of the wound were eliminated with the use of scissors. No purulent drainage is associated with the wound. No erythema of the skin surrounding the wound is present. No maceration of the skin of the periwound is noted. No significant edema of the left foot is present on exam today. After copious irrigation of the wound bed with normal saline, MatriStem sheet 3 x 3.5 cm was applied to the wound bed followed by Adaptic and the foam of the wound VAC. ASSESSMENT AND PLAN: 1. Left heel ulceration as described above over the plantar surface of the heel. MatriStem sheet was applied to the wound bed of the ulceration today followed by Adaptic and the foam of the wound VAC. Orders will be transmitted to Home Health for a dressing change of the wound VAC in 5 days. I will see Mr. Blake again in 1 week. At this time, consideration will be given to another placement of MatriStem sheet in conjunction with negative pressure therapy. 2. Polio. 3. Osteoarthritis. 4. Hypertension. 5. Coronary artery disease. Job ID: [id number]
== END 2019-06-25 13:35 | disposition home or self-care (01) ==
LOC: WCC 13:34
PROVIDERS: ATTEND Family Medicine
DX: L97.429 Non-pressure chronic ulcer of left heel and midfoot with unspecified severity (principal); A80.9 Acute poliomyelitis, unspecified; M19.90 Unspecified osteoarthritis, unspecified site; I10 Essential (primary) hypertension; I25.10 Atherosclerotic heart disease of native coronary artery without angina pectoris
CPT/HCPCS: A4218; J2001; Q4166-KX-JC

== ENCOUNTER 2019-07-02 12:57 | Outpatient (CLI) | payer MEDICARE, BC ==
[2019-07-02] MEDS ORDERED: Lidocaine 2% PF 100 mg/5 ml Syringe ONE (15:00)
[2019-07-02] MEDS ORDERED: Sodium Chloride 0.9% 15 ML NEB ONE (15:00)
--- NOTE | 2019-07-02 18:01 | PRG ---
DATE OF SERVICE: 07/02/2019 HISTORY: Mr. Tyler Blake is a very pleasant 74-year-old gentleman, who presents to the Wound Center for evaluation of an ulceration of the left heel. The patient was recently admitted to [facility], where he was found to have osteomyelitis of the left heel. The patient received IV antibiotics as per Infectious Diseases. During the patient's hospital stay, Mr. Blake was seen in consultation by Dr. Maxime Stallings. The patient is currently receiving negative pressure therapy for the ulceration of his left heel. PHYSICAL EXAMINATION: VITAL SIGNS: Temperature 98.1, pulse 72, respirations 21, and blood pressure 160/73. EXTREMITIES: The ulceration over the plantar surface of the left heel measures approximately 0.5 x 0.2 cm. The depth of the wound is approximately 0.4 cm. The dimensions of the wound at the time of the patient's visit on 06/25/2019, were approximately 0.7 x 0.2 cm, the depth of the wound was approximately 0.6 cm. Granulation tissue is present within the wound margins. No purulent drainage is associated with the wound. No erythema of the skin surrounding the wound is present. No maceration of the skin of the periwound is noted. No significant edema of the left foot is present on exam today. ASSESSMENT AND PLAN: 1. Left heel ulceration as described above over the plantar surface of the heel. Negative pressure therapy will be continued with dressing changes of the wound VAC 3 times per week with the assistance of Home Health. I will see Mr. Blake again in 3 weeks. 2. Polio. 3. Osteoarthritis. 4. Hypertension. 5. Coronary artery disease. Job ID: [id number]
== END 2019-07-02 12:58 | disposition home or self-care (01) ==
LOC: WCC 12:57
PROVIDERS: ATTEND Family Medicine
DX: L97.429 Non-pressure chronic ulcer of left heel and midfoot with unspecified severity (principal); A80.9 Acute poliomyelitis, unspecified; M19.90 Unspecified osteoarthritis, unspecified site; I10 Essential (primary) hypertension; I25.10 Atherosclerotic heart disease of native coronary artery without angina pectoris
CPT/HCPCS: 97602; A4218; J2001

== ENCOUNTER 2019-07-23 10:44 | Outpatient (CLI) | payer MEDICARE, BC ==
--- NOTE | 2019-07-23 11:01 | RAD ---
2 views of the left heel INDICATION: History of chronic osteomyelitis COMPARISON: Left foot radiographs dated March 12, 2019 FINDINGS: Small superficial ulcer is again seen along the plantar aspect of the heel pad. No destruct oxana osteolytic is seen to suggest presence radiographically of osteomyelitis. Enthesopathic change off the posterior and plantar calcaneus is stable. Dystrophic calcifications along the plantar fascia similar appearing. There is partial visualization of instrumentation involving the great toe metatarsal. IMPRESSION: No radiographic evidence to suggest presence of osteomyelitis. Plantar base ulcer of the left heel pad.
== END 2019-07-23 10:45 | disposition home or self-care (01) ==
LOC: BICRAD 10:44
PROVIDERS: ATTEND Internal Medicine Infectious Disease
DX: M86.672 Other chronic osteomyelitis, left ankle and foot (principal); L97.429 Non-pressure chronic ulcer of left heel and midfoot with unspecified severity

== ENCOUNTER 2019-07-23 14:29 | Outpatient (CLI) | payer MEDICARE, BC ==
--- NOTE | 2019-07-23 14:11 | PRG ---
DATE OF SERVICE: 07/23/2019 HISTORY: Mr. Tyler Blake is a very pleasant 74-year-old gentleman, who presents to the Wound Center for evaluation of an ulceration of the left heel. The patient was previously admitted to [facility], where he was found to have osteomyelitis of the left heel. The patient received IV antibiotics as per Infectious Diseases. During the patient's hospital stay, Mr. Blake was seen in consultation by Dr. Maxime Stallings. The patient is presently receiving negative pressure therapy for the ulceration of his left heel. PHYSICAL EXAMINATION: VITAL SIGNS: Temperature 97.6, pulse 77, respirations 17, blood pressure 169/74. EXTREMITIES: The ulceration over the plantar surface of the left heel measures approximately 0.6 x 0.3 cm. The depth of the wound is approximately 0.5 cm. Granulation tissue is present within the wound margins. Nonviable tissue present within the wound margins was debrided with an excisional full-thickness debridement with the use of a curette. Callus desiccated tissue and undermining at the periphery of the wound were eliminated with the use of scissors. Purulent drainage is associated with the wound. No erythema of the skin surrounding the wound is present. No maceration of the skin of the periwound is noted. No significant edema of the left foot is present on exam today. ASSESSMENT AND PLAN: 1. Left heel ulceration as described above over the plantar surface of the heel. Negative pressure therapy will be continued with dressing changes of the wound VAC 3 times per week with the assistance of Home Health. I will see Mr. Blake again in 2 weeks. 2. Polio. 3. Osteoarthritis. 4. Hypertension. 5. Coronary artery disease. Job ID: [id number]
== END 2019-07-23 14:30 | disposition home or self-care (01) ==
LOC: WCC 14:29
PROVIDERS: ATTEND Family Medicine
DX: L97.429 Non-pressure chronic ulcer of left heel and midfoot with unspecified severity (principal); I10 Essential (primary) hypertension; A80.9 Acute poliomyelitis, unspecified; M19.90 Unspecified osteoarthritis, unspecified site; I25.10 Atherosclerotic heart disease of native coronary artery without angina pectoris

== ENCOUNTER 2019-08-03 11:47 | Outpatient (CLI) | payer MEDICARE, BC ==
[~2019-08-03 11:47] MED LIST changes: -Lidocaine 2% PF 100 mg/5 ml Syringe ONE; +Magnevist 469MG/ML 20 ML VIAL ONE; -Sodium Chloride 0.9% 15 ML NEB ONE
[2019-08-03 12:54] LABS: Estimated GFR-MDRD - POC Greater than 90
--- NOTE | 2019-08-03 13:48 | MRI ---
MR of the left hindfoot with and without contrast INDICATION: Evaluate for osteomyelitis COMPARISON: Left heel radiograph dated July 23, 2019 and MR the left heel dated March 12, 2019. TECHNIQUE: Multiplanar multisequence MR images were obtained of the left hindfoot with and without co ntrast. The patient received 17 cc of MultiHance for the exam. FINDINGS: Large plantar base wound underlying the posterior tuberosity calcaneus is slightly less prominent. Th e abnormal signal intensity and enhancement involving the plantar aspect of the calcaneus is less prominent likely reflecting improving osteomyelitis. Some residual signal abnormality and cortical os teolysis is seen along the plantar medial aspect of the posterior tuberosity of the calcaneus consistent with some mild residual osteomyelitis. There is disruption of the medial plantar fascial b and from the ulceration. No large drainable fluid collection is evident. Postprocedural change involving the Achilles tendon and partial tendon transfer of the peroneus brevis to the posterior rj caneus is similar appearing. Osteochondral lesion involving the lateral talar dome is stable. IMPRESSION: Improving plantar calcaneal osteomyelitis. Mild residual osteomyelitis remains along the plantar medial aspect of the posterior tuberosity calcaneus. No large drainable fluid collection is evident. There is stable post procedural change involving the Achilles tendon and peroneus brevis ten don. There is stable osteochondral defect involving the lateral talar dome.
== END 2019-08-03 11:48 | disposition home or self-care (01) ==
LOC: BICMRI 11:47
PROVIDERS: ATTEND Internal Medicine Infectious Disease
DX: M86.9 Osteomyelitis, unspecified (principal)
CPT/HCPCS: 82565; A9579

== ENCOUNTER 2019-08-06 13:37 | Outpatient (CLI) | payer MEDICARE, BC ==
[~2019-08-06 13:37] MED LIST changes: +Lidocaine 2% PF 100 mg/5 ml Syringe ONE; -Magnevist 469MG/ML 20 ML VIAL ONE; +Sodium Chloride 0.9% 15 ML NEB ONE
--- NOTE | 2019-08-06 20:12 | PRG ---
DATE OF SERVICE: 08/06/2019 HISTORY OF PRESENT ILLNESS: Mr. Tyler Blake is a very pleasant 74-year-old gentleman, who presents to the [facility] for evaluation of an ulceration of the left heel. The patient was previously admitted to [facility], where he was found to have osteomyelitis of the left heel. The patient received IV antibiotics as per Infectious Diseases. During the patient's hospital stay, Mr. Blake was seen in consultation by Dr. Maxime Stallings. The patient states that he underwent MRI of the left hindfoot on 08/03/[address] Mckeon. MRI revealed improving plantar calcaneal osteomyelitis, mild residual osteomyelitis along the plantar medial aspect of the posterior tuberosity calcaneus was noted. The patient states that he is receiving dressing changes of Promogran 3 times per week with the assistance of Home Health. PHYSICAL EXAMINATION: VITAL SIGNS: Temperature 97.9, pulse 70, respirations 18, blood pressure 160/73. EXTREMITIES: The ulceration over the plantar surface of the left heel measures approximately 0.4 x 0.2 cm. The depth of the wound is approximately 0.5 cm. Granulation tissue is present within the wound margins. Nonviable tissue present within the wound margins was debrided with an excisional full-thickness debridement with the use of a curette. Callus desiccated tissue and undermining at the periphery of the wound were eliminated with the use of scissors. No purulent drainage is associated with the wound. No erythema of the skin surrounding the wound is present. No maceration of the skin of the periwound is noted. No significant edema of the left foot is present on exam today. ASSESSMENT AND PLAN: 1. Left heel ulceration as described above over the plantar surface of the heel. Dressing changes of Promogran will be continued 3 times per week after cleansing and irrigation with the assistance of Home Health. Arrangements will be made for a followup visit with Dr. Mckeon. The patient has been instructed to schedule a followup visit in the Wound Center after he has been seen by Infectious Diseases to review the findings noted on MRI. The patient understands and is in agreement with the preceding treatment plan. 2. Polio. 3. Osteoarthritis. 4. Hypertension. 5. Coronary artery disease. Job ID: [id number]
== END 2019-08-06 13:38 | disposition home or self-care (01) ==
LOC: WCC 13:37
PROVIDERS: ATTEND Family Medicine
DX: L97.429 Non-pressure chronic ulcer of left heel and midfoot with unspecified severity (principal); M19.90 Unspecified osteoarthritis, unspecified site; I10 Essential (primary) hypertension; I25.10 Atherosclerotic heart disease of native coronary artery without angina pectoris; A80.9 Acute poliomyelitis, unspecified
CPT/HCPCS: A4218; J2001

== ENCOUNTER 2020-05-24 11:23 | Outpatient (CLI) | payer MEDICARE, BC ==
--- NOTE | 2020-05-24 11:46 | RAD ---
Exam: XR Heel Lt 2 View STANDARD HISTORY: Local infection of skin, subcutaneous tissues. COMPARISON: 02/08/2020 FINDINGS: Posterior plantar calcaneal enthesophytes are seen. Again noted are degenerative changes at the tibio talar joint and involving the subtalar joint and involving the midfoot similar to prior exam. Postoperative changes of the first metatarsal are again partially seen. Dystrophic calcifications ember ng the plantar fascia are unchanged from prior study. There is suggestion of minimal subcutaneous soft tissue swelling posterior to the calcaneus. Views of the calcaneus are stable compared to prior exam without evidence of osseous destruction, and no fracture is seen. IMPRESSION: Stable views of the calcaneus without osseous destruction seen. There is question of subcutaneous sof t tissue swelling seen posterior to the upper portion of the calcaneus, but this does appear similar to the prior exam.
== END 2020-05-24 11:24 | disposition home or self-care (01) ==
LOC: BICRAD 11:23
PROVIDERS: ATTEND Internal Medicine Infectious Disease
DX: L08.9 Local infection of the skin and subcutaneous tissue, unspecified (principal)

== ENCOUNTER 2020-09-01 10:52 | Outpatient (CLI) | payer MEDICARE, BC ==
--- NOTE | 2020-09-01 11:28 | RAD ---
LEFT HEEL 2 VIEWS: HISTORY: Pressure ulcer of heel. COMPARISON: A 05/24/2020 exam. FINDINGS: Prominent calcaneal spur formation is seen. Calcification within the plantar fascia is a stable find ing. Arthritic changes at the subtalar joint and ankle are again noted. I do not see any definite b nyasia erosive change of osteomyelitis. IMPRESSION: No plain film evidence for osteomyelitis. POS: [facility]
== END 2020-09-01 10:53 | disposition home or self-care (01) ==
LOC: BICRAD 10:52
PROVIDERS: ATTEND Internal Medicine Infectious Disease
DX: L89.629 Pressure ulcer of left heel, unspecified stage (principal)

== ENCOUNTER 2021-01-05 10:34 | Outpatient (CLI) | payer MEDICARE, BC | END 2021-01-05 10:35 | disposition home or self-care (01) | LOC: BICRAD 10:34 | PROVIDERS: ATTEND Internal Medicine Infectious Disease | DX: L97.429 Non-pressure chronic ulcer of left heel and midfoot with unspecified severity (principal) ==

== ENCOUNTER 2023-08-22 13:13 | Outpatient (CLI) | payer MEDICARE, BC ==
[2023-08-22] MEDS ORDERED: Magnevist 469MG/ML 20 ML VIAL ONE (14:47)
== END 2023-08-22 13:14 | disposition home or self-care (01) ==
LOC: MRI 13:13
PROVIDERS: ATTEND Physician Assistant
DX: L89.620 Pressure ulcer of left heel, unstageable (principal); M86.8X7 Other osteomyelitis, ankle and foot
CPT/HCPCS: A9579

== ENCOUNTER 2024-03-09 10:34 | Emergency (ER) | payer BC, MEDICARE ==
[2024-03-09 12:26] LABS: #Basophils 0.03 10x3/uL (0.0-0.2); %Basophils 0.5 % (0.0-1.0); %Eosinophils 2.6 % (0.0-10.0); %Lymphocytes 24.6 % (21.0-51.0); %Monocytes 11.1 % (0.0-10.0); %Neutrophils 60.9 % (42.0-75.0); Hematocrit 45.4 % (42.0-52.0); Hemoglobin 14.7 g/dL (14.0-18.0); Mean Corpuscular HGB CONC 32.4 g/dL (32.0-36.0); Mean Corpuscular Hemoglobin 29.1 pg (27.0-31.0); Mean Corpuscular Volume 89.7 fL (78.0-98.0); Mean Platelet Volume 10.6 fL (7.4-10.4); Platelet Count 220 10x3/uL (130-400); RBC Distribution Width 15.3 % (11.5-14.5); Red Blood Cell (RBC) Count 5.06 mill/uL (4.70-6.10)
[2024-03-09] MEDS ORDERED: Ketorolac Tromethamine 30 MG (1 mL) VIAL ONE (12:34)
[2024-03-09] MEDS ORDERED: Lidocaine 4% Patch ONE (12:36)
[2024-03-09] MEDS ORDERED: Iopamidol-370 76% 500 ML MDV (1 ML CHARGE) ONE (12:42)
[2024-03-09 12:47] LABS: ALT (SGPT) 29 U/L (8-55); AST (SGOT) 27 U/L (5-34); Albumin 3.5 g/dL (3.4-4.8); Alkaline Phosphatase 88 U/L (40-110); Anion Gap 15 mmol/L (10-20); BUN (Urea Nitrogen) 14 mg/dL (8.4-25.7); Bilirubin, Total 1.2 mg/dL (0.2-1.2); Calc. Creatinine Clearance 0 mL/min (70-130); Calcium 9.9 mg/dL (7.8-10.44); Carbon Dioxide 27 mmol/L (23-31); Chloride 105 mmol/L (98-107); Estimated GFR 92; Globulin 3.9 g/dL (2.4-3.5); Glucose 99 mg/dL (83-110); Lipase 22 U/L (8-78); Potassium 3.8 mmol/L (3.5-5.1); Protein, Total 7.4 g/dL (5.8-8.1); Sodium 143 mmol/L (136-145)
[2024-03-09 15:56] LABS: Bacteria/HPF None Seen HPF (None Seen); Bilirubin Negative (Negative); Blood, Urine Negative (Negative); CAUTI Indications for Culture Dysuria,urgency,freq; Clarity Clear (Clear); Glucose, Urine (Dipstick) Normal (Negative); Ketone, Urine Negative (Negative); Leukocyte Negative Leu/uL (Negative); Nitrite Negative (Negative); Protein, Urine (Dipstick) Negative (Neg-Trace); RBC/HPF 0-3 HPF (0-3); Specific Gravity, Urine 1.022 (1.002-1.036); Squamous Epithelial None Seen HPF (0-3); Urobilinogen Normal mg/dL (Less than 2); WBC/HPF 0-3 HPF (0-3); pH, Urine 7.5 (5.0-9.0)
[2024-03-09 15:59] LABS: Urine Culture Reflex No No
== END 2024-03-09 16:33 | disposition home or self-care (01) ==
LOC: ERS 10:34
DX: R10.9 Unspecified abdominal pain (principal); I10 Essential (primary) hypertension; I25.10 Atherosclerotic heart disease of native coronary artery without angina pectoris; E78.00 Pure hypercholesterolemia, unspecified; I42.9 Cardiomyopathy, unspecified; M06.9 Rheumatoid arthritis, unspecified; W18.30XA Fall on same level, unspecified, initial encounter; Z79.82 Long term (current) use of aspirin; Z79.899 Other long term (current) drug therapy
CPT/HCPCS: 74177; 80053; 81001; 83690; 85025; 87086; J1885; 36415; 96374; Q9967